=== PATIENT | female | born 1985 | race Caucasian/White ===

== ENCOUNTER 2018-09-16 14:44 | Outpatient (CLI) | payer MEDICAID, SELFPAY ==
--- NOTE | 2018-09-16 09:12 | DI.RAD_ITS ---
SYMPTOM/DIAGNOSIS: NODULE OF BUTTOCK, E22/2, LOCALIZED MASS LUMBOSACRAL SPINE: The vertebral bodies are intact with note made of an os secondarius involving the L 5 vertebral body which is a normal anatomical variant. There are mild degenerative changes involving the lower dorsal spine. There is no evidence of disc space narrowing. The pedicle, spinous and transverse processes are intact. The sacrum and sacroiliac joints are well maintained. A small metallic marked is positioned over the right buttocks where there is a small region of soft tissue nodularity. SUMMARY: There are minimal degenerative changes involving the lumbosacral spine. There is an apparent small soft tissue area of nodularity over the left buttocks. Incidental note is also made of an IUD in place.
== END 2018-09-16 15:04 ==
PROVIDERS: Visit Provider Nurse Practitioner Family
DX: R22.2 Localized swelling, mass and lump, trunk (principal); Z97.5 Presence of (intrauterine) contraceptive device
CPT/HCPCS: 72110

== ENCOUNTER 2018-12-29 22:11 | Outpatient (REF) | payer MEDICAID, SELFPAY | END 2018-12-29 22:31 | LOC: LBN 22:11 | PROVIDERS: PCP Nurse Practitioner Family; Visit Provider Nurse Practitioner Family | DX: R68.89 Other general symptoms and signs (principal) | CPT/HCPCS: 87449 ==

== ENCOUNTER 2019-03-18 13:10 | Outpatient (REF) | payer MEDICAID, SELFPAY ==
--- NOTE | 2019-03-18 11:40 | PAPFT_PTH ---
PATIENT: Ashley Chicas LOC: [facility] U#:[id number] AGE/SX: 34/F ROOM: RE03/18/[address]: MELODY Garduno : 1985 BED: DIS: 03/18/2019 SPEC #: [id number] RECD: 03/21/19 12:53 STATUS: MOLLY REJonas #: [id number] CARLITA: 03/18/19 11:[address]: Julia Dasilva DEPT: [facility] Cytology RECD BY: Suzie Robert Tissues: 1 - CX/ENDOCX FOR PAP SMEARS Procedures: PAP THIN PREP/UVM Screening HPV DNA PROBE Comments: [id number]
== END 2019-03-18 13:30 ==
LOC: LBN 13:10
PROVIDERS: PCP Nurse Practitioner Family; Visit Provider Nurse Practitioner Family
DX: Z12.4 Encounter for screening for malignant neoplasm of cervix (principal); Z11.51 Encounter for screening for human papillomavirus (HPV)
CPT/HCPCS: 88142; 87624

== ENCOUNTER 2019-05-16 15:10 | Outpatient (REF) | payer MEDICAID, SELFPAY ==
[2019-05-17 13:45] LABS: Chlamydia Result Negative; GC Result Negative; Specimen Description CERVIX
== END 2019-05-16 15:30 ==
LOC: LBN 15:10
PROVIDERS: PCP Nurse Practitioner Family; Visit Provider Nurse Practitioner Family
DX: Z11.3 Encounter for screening for infections with a predominantly sexual mode of transmission (principal)
CPT/HCPCS: 87491; 87591

== ENCOUNTER 2019-06-16 08:51 | Outpatient (CLI) | payer MEDICAID, SELFPAY ==
[2019-06-16 11:02] LABS: Hemoglobin A1C 5.2 % (4.5-6.2)
[2019-06-16 11:05] LABS: ALT 24 U/L (12-78); AST 12 U/L (15-37); Albumin 4.2 g/dL (3.4-5.0); Alkaline Phosphatase 62 U/L (46-116); Anion Gap 8.3 mmol/L (3-11); BUN 10 mg/dL (7-18); Bilirubin, Total 0.5 mg/dL (0.2-1.0); CO2 26.7 mmol/L (21.0-32.0); CREATININE 0.69 mg/dL (0.55-1.02); Calcium 9.2 mg/dL (8.5-10.1); Calculated LDL 136 mg/dL; Chloride 103 mmol/L (98-107); Cholesterol 198 mg/dL (50-200); Glucose 95 mg/dL (70-100); HDL Cholesterol 44 mg/dL (40-60); Potassium 4.8 mmol/L (3.5-5.1); Sodium 138 mmol/L (136-145); Total Protein 7.3 g/dL (6.4-8.2); Triglyceride 93 mg/dL (30-150)
[2019-06-16 11:16] LABS: ESR 11 MM/HR (0-20)
[2019-06-16 14:19] LABS: Abs Immature Grans 0.02 k/cumm (0.0-0.09); Absolute Basophil Count 0.02 k/cumm (0.0-0.2); Absolute Eosinophil Count 0.18 k/cumm (0.0-0.7); Absolute Lymphocyte Count 2.39 k/cumm (1.2-3.4); Absolute Monocyte Count 0.47 k/cumm (0.11-0.7); Absolute Neutrophil Count 3.16 k/cumm (1.2-6.7); Basophils % 0.3; Eosinophils % 2.9; HCT 38.3 % (36.0-46.0); HGB 13.1 g/dL (12.0-15.5); Immature Grans % 0.3; Lymphocytes % 38.3; Mean Corp. HGB Concentration 34.2 g/dL (32.0-36.0); Mean Corpuscular Hemoglobin 32.9 pg (27.0-33.0); Mean Corpuscular Volume 96.2 fL (80-95); Mean Platelet Volume 9.3 fL (8.0-11.0); Monocytes % 7.5; Neutrophils % 50.7; Platelet Count 421 x1000/uL (130-400); RBC 3.98 m/cumm (4.00-5.20); White Blood Cell Count 6.24 k/cumm (4.4-10.8)
[2019-06-17 10:44] LABS: Lyme Ab w Rflx to Lyme Confirm Negative
[2019-06-17 13:55] LABS: FREE T4 0.79 ng/dL (0.76-1.46)
== END 2019-06-16 09:11 ==
PROVIDERS: PCP Nurse Practitioner Family; Visit Provider Nurse Practitioner Family
DX: Z86.32 Personal history of gestational diabetes (principal); W57.XXXA Bitten or stung by nonvenomous insect and other nonvenomous arthropods, initial encounter; T14.8XXA Other injury of unspecified body region, initial encounter
CPT/HCPCS: 36415; 80053; 80061; 83721; 85652; 83036; 84439; 84443; 85025; 86618

== ENCOUNTER 2022-07-31 12:44 | Outpatient (REF) | payer MEDICAID, SELFPAY ==
--- NOTE | 2022-07-31 11:30 | PAPFT_PTH ---
PATIENT: Ashley Chicas LOC: [facility] U#:[id number] AGE/SX: 37/F ROOM: RE07/31/[address]: MELODY Garduno : 1985 BED: DIS: 07/31/2022 SPEC #: [id number] RECD: 08/01/22 12:58 STATUS: MOLLY CALL #: [id number] CARLITA: 07/31/22 11:[address]: Julia Dasilva DEPT: [facility] Cytology RECD BY: Suzie Robert Tissues: 1 - CX/ENDOCX FOR PAP SMEARS Procedures: PAP THIN PREP/UVM Screening HPV DNA PROBE Comments: [id number]
== END 2022-07-31 12:45 | disposition home or self-care (01) ==
LOC: LBN 12:44
PROVIDERS: PCP Nurse Practitioner Family; Visit Provider Nurse Practitioner Family
DX: Z12.4 Encounter for screening for malignant neoplasm of cervix (principal); Z11.51 Encounter for screening for human papillomavirus (HPV)
CPT/HCPCS: 88142; 87624

== ENCOUNTER 2023-04-09 02:30 | Outpatient (CLI) | payer MEDICAID, SELFPAY ==
[2023-04-09 13:17] LABS: Abs Immature Grans 0.01 10^3/uL (0.0-0.06); Absolute Basophil Count 0.05 10^3/uL (0.0-0.2); Absolute Eosinophil Count 0.18 10^3/uL (0.0-0.7); Absolute Lymphocyte Count 3.31 10^3/uL (1.2-3.4); Absolute Monocyte Count 0.54 10^3/uL (0.1-0.8); Absolute Neutrophil Count 2.33 10^3/uL (1.2-6.7); Basophils % 0.8; Eosinophils % 2.8; HCT 35.3 % (36.0-46.0); HGB 12.3 g/dL (11.2-15.7); Immature Grans % 0.2; Lymphocytes % 51.6; MCH 33.1 pg (27.0-33.0); MCHC 34.8 % (32.0-36.0); MCV 95 fL (80-95); MPV 8.7 fL (8.0-11.0); Monocytes % 8.4; Neutrophils % 36.2; Platelet Count 376 10^3/uL (130-400); RBC 3.72 10^6/uL (3.93-5.22); RDW 11.5 % (11.7-14.6); RDW-SD 39.9 fL; WBC 6.42 10^3/uL (4.4-10.8)
[2023-04-09 13:49] LABS: Hemoglobin A1C 5.2 % (<5.7)
[2023-04-09 13:53] LABS: ALT 25 U/L (14-59); AST 15 U/L (15-37); Alkaline Phosphatase 50 U/L (46-116); Anion Gap 7.6 mmol/L (3-11); BUN 9 mg/dL (7-18); Bilirubin, Total 0.4 mg/dL (0.2-1.0); CO2 28.4 mmol/L (21.0-32.0); CREATININE 0.7 mg/dL (0.55-1.02); Calcium 8.5 mg/dL (8.5-10.1); Calculated LDL 159 mg/dL (<100); Chloride 102 mmol/L (98-107); Cholesterol 230 mg/dL (<200); Estimated GFR 114.16 (mL/min/1.73m2); Glucose 88 mg/dL (74-106); HDL Cholesterol 46 mg/dL (40-60); Potassium 3.7 mmol/L (3.5-5.1); Sodium 138 mmol/L (136-145); Total Protein 7.3 g/dL (6.4-8.2); Triglyceride 126 mg/dL (<150)
[2023-04-10 07:17] LABS: Lab Add On Test DONE
[2023-04-10 07:55] LABS: Ferritin 74 ng/mL (8-252); Vitamin B12 1264 pg/mL (193-986)
== END 2023-04-09 02:31 | disposition home or self-care (01) ==
PROVIDERS: PCP Nurse Practitioner Family; Visit Provider Nurse Practitioner Family
DX: D64.9 Anemia, unspecified (principal); E78.5 Hyperlipidemia, unspecified; R10.84 Generalized abdominal pain; K21.9 Gastro-esophageal reflux disease without esophagitis; F41.8 Other specified anxiety disorders; Z86.32 Personal history of gestational diabetes
CPT/HCPCS: 36415; 80053; 80061; 82607; 82728; 83036; 85025

== ENCOUNTER 2023-05-13 02:40 | Outpatient (CLI) | payer MEDICAID, SELFPAY ==
--- NOTE | 2023-05-13 08:00 | DI.US_ITS ---
Exam(s) US ABD PELV TRANSVAG NON-OB EXAM: US ABD PELV TRANSVAG NON-OB CLINICAL HISTORY: Upper abdominal and lower pelvic pain,R10.84 TECHNIQUE: Ultrasound of the abdomen and pelvis was performed both transabdominal and transvaginal. COMPARISON: US OB US 2-3 TRIMESTER TRANSABD*P from 02/16/2014 FINDINGS: ABDOMEN: There is no ascites evident. LIVER: There are no hepatic lesions evident nor obvious dilatation of intrahepatic ducts. GALLBLADDER/BILIARY: There are no gallstones. No gallbladder wall edema nor pericholecystic fluid. The common hepatic duct isnot dilated, measuring 3-4mm at the level of vicente hepatis. PANCREAS: There is no evidence of pancreatic mass nor dilatation of the pancreatic duct. SPLEEN: The spleen is not enlarged and there are no intrasplenic lesions evident. KIDNEYS:Kidneys exhibit normal size with no evidence of solid mass, calculus, nor hydronephrosis. No cortical cysts evident. ABDOMINAL AORTA: There is no evidence of abdominal aortic aneurysm. IVC: Normal diameter where visualized. UTERUS: Measures 7 cm length x 4 cm AP x 5 cm wide. There is a single fibroid located anteriorly measuring 1.3 x 1.2 cm. There is an IUD in satisfactory position in the endometrial canal. Endometrial thickness measures 4 mm. There is no fluid in the endometrial canal. CERVIX: There are no obvious nabothian cysts. RIGHT OVARY: Measures 1.8 x 1.1 x 0.9 cm. Contains sub cm follicular cysts. No solid lesions. LEFT OVARY: Measures 3.3 x 2.4 x 2.9 cm Contains follicular cysts ranging up to 1.8 x 2.1 cm. CUL-DE-SAC: No free fluid evident. IMPRESSION: 1. No evidence of cholelithiasis nor dilatation of the biliary tree. 2. No other significant ultrasound findings in the upper abdomen. 3. There is no ascites. 4. IUD is in good position in the endometrial canal. Solitary small anterior myometrial fibroid trevor uring 13 x 12 mm.. 5. 2 cm follicular cyst in the left ovary. Probably dominant follicle. No solid ovarian masses. 6. No free fluid evident in the adnexal regions and cul-de-sac. 7. DATA REPOSITORY:
== END 2023-05-13 03:00 ==
LOC: DI 02:40
PROVIDERS: PCP Nurse Practitioner Family; Visit Provider Nurse Practitioner Family
DX: R10.84 Generalized abdominal pain (principal); N83.02 Follicular cyst of left ovary
CPT/HCPCS: 76700; 76830; 76856

== ENCOUNTER 2023-05-14 10:45 | Outpatient (CLI) | payer MEDICAID, SELFPAY ==
[2023-05-14 13:03] LABS: ALT 23 U/L (14-59); AST 14 U/L (15-37); Albumin 4.2 g/dL (3.4-5.0); Alkaline Phosphatase 55 U/L (46-116); Amylase 41 U/L (25-115); Anion Gap 8.7 mmol/L (3-11); BUN 9 mg/dL (7-18); Bilirubin, Total 0.5 mg/dL (0.2-1.0); CO2 28.3 mmol/L (21.0-32.0); CREATININE 0.7 mg/dL (0.55-1.02); Calcium 9.3 mg/dL (8.5-10.1); Chloride 104 mmol/L (98-107); Estimated GFR 114.16 (mL/min/1.73m2); Glucose 96 mg/dL (74-106); Lipase 27 U/L (16-77); Potassium 4.1 mmol/L (3.5-5.1); Sodium 141 mmol/L (136-145); Total Protein 7.7 g/dL (6.4-8.2)
== END 2023-05-14 10:46 | disposition home or self-care (01) ==
LOC: LOS 10:46
PROVIDERS: PCP Nurse Practitioner Family; Visit Provider Nurse Practitioner Family
DX: K21.9 Gastro-esophageal reflux disease without esophagitis (principal); R10.13 Epigastric pain; R10.84 Generalized abdominal pain; R19.4 Change in bowel habit
CPT/HCPCS: 36415; 80053; 83690; 82150

== ENCOUNTER 2023-08-13 11:23 | Day surgery (SDC) | payer MEDICAID, SELFPAY ==
--- NOTE | 2023-08-13 10:34 | PDOC.DSDIS_ITS ---
Date of service: 08/13/23 Time of Service: 13:14 Discharge Plan Disposition Patient Disposition: Home Condition: Good Discharge Details Reason For Visit: EGD Attending Provider: Giovany Aviles Primary Care Provider: Julia Dasilva Home Meds and New Rx's Prescriptions: Continued Mirena 20 mcg/24 hours (5 yrs) 52 mg intrauterine device 1 device IY ONCE Patient Comments: Inserted 05/16/19 famotidine 20 mg tablet 20 mg PO QHS Qty: 30 0RF Patient Comments: no longer taking, switched to omeprazole One Daily Women's 27-0.4 mg tablet 1 tab PO DAILY Patient Comments: no longer taking omeprazole 40 mg capsule,delayed release(DR/EC) 40 mg PO DAILY PRN (Reason: heartburn) Qty: 90 3RF sertraline 100 mg tablet 200 mg PO DAILY Qty: 180 3RF Rx Instructions: Take 2 tabs daily Discharge Instructions Instructions: Hiatal Hernia (GEN) Additional Instructions: Ashley, we were able to do your upper endoscopy today without any problems. You do have signs of a hiatal hernia. This is where a portion of your stomach slips up through the muscular separation between your chest and your belly (that muscle was called the diaphragm) I suspect this is contributing to a lot of your symptoms. If taking the liberty of making an appointment for you to follow-up in our surgical offices with Dr. Maximino Fuchs for his opinion regarding management, and potential surgical repair. 1. If tolerated, consume a soft, low fiber diet for 1-2 days. [address] Do not drive, drink alcohol, operate machinery, make critical decisions, or do activities that require coordination or balance for 24 hours. 3. You may experience a sore throat for 24 to 48 hours. You may use throat lozenges or gargle with warm salt water to relieve the discomfort. 4. Because air was put into your stomach during the procedure, you may experience some belching. 5. Go directly to the emergency room if you notice any of the following: Develop chills (warm to touch), or if you have a thermometer and your temperature is above 101 Difficulty breathing or difficultly swallowing Persistent vomiting Severe abdominal pain, other than gas cramps Severe chest pain Black, tarry stools Any bleeding ? exceeding one tablespoon 6. Call your physician if the site where your intravenous was started becomes red, swollen, painful, and warm to touch. 7. Your physician has reviewed your pre-procedure medications. Please continue to take those medications as previously ordered. You will be given specific information/education regarding any changes to your medications before leaving. Referrals: Maximino Fuchs MD [ [facility] STAFF PHYSICIAN] - (August 25 at 2:30 PM) Activity:: Activity as Tolerated Diet:: As Tolerated Discharge Orders Discharge Orders: Discharge Order (Routine); Ordered 08/13/23 Ordered By: Giovany Aviles DS: Diagnosis Discharge Diagnosis (1) GERD (gastroesophageal reflux disease): Status: Chronic Asessment and Plan: Will need referral for hiatal hernia repair, and possibly Amna fundoplication
--- NOTE | 2023-08-13 10:35 | W.PM.ENDDOP ---
Date of service: 08/13/23 Time of Service: 13:19 Endoscopy Report DATE OF PROCEDURE: 08/13/23 PRE-OP DIAGNOSIS: GERD POST-OP DIAGNOSIS: other (Hiatal hernia) PROCEDURE: EGD with biopsies SURGEON: Giovany Aviles ANESTHESIA TYPE: General:No Airway ESTIMATED BLOOD LOSS: 10 PATHOLOGY: other COMPLICATIONS: None DISPOSITION: same day INDICATIONS: Ashley is a 38 year old woman with longstanding GERD that has been refractory to PPI therapy PROCEDURE START TIME: 12:48 PROCEDURE END TIME: 12:54 FINDINGS: Hill grade 3 or 4 hiatal hernia PROCEDURE DESCRIPTION: After the initiation of monitored anesthetic care, and with the assistance of a bite block, I advanced a standard gastroscope through the mouth past the hypopharynx and into the esophagus.? Under the direct vision of the scope, I advanced down the esophagus into the stomach.? Once I entered the stomach, I performed a brief inspection, followed by retroflexion towards the gastric cardia.? There was laxity of the GE junction around the scope, and upon further inspection and gentle insufflation, there was clearly herniation of the GE junction up above the diaphragmatic hiatus. I would estimate this to be a Hill 3, or potentially help for hiatal hernia. There is no evidence of any ulceration around herniating mucosa. The remainder of the gastric cardia and fundus appeared totally normal. I turned the camera back towards the antegrade position and advanced towards the pylorus. The incisura was normal. The antrum was normal and the pylorus was also normal. I then gently advance his camera into the duodenum. I was able to advance down to the third portion of the duodenum and visualize bile draining through the ampulla Vater. I did perform biopsies of the duodenum before backing the camera back out into the stomach. I perform random biopsies of the gastric antrum and gastric body to ensure that there is no presence of helical back to pylori or any evidence of microscopic gastritis. I then brought the camera back up to the GE junction. The Z-line was fairly normal-appearing, and measured approximately 38 cm from the incisors. Given the longstanding reflux, I did perform biopsies of the GE junction. I then emptied the stomach, and brought the camera out along the length of the esophagus which was carefully examined. The length of the esophagus was totally normal as well. The camera was withdrawn, the patient was brought to the recovery unit.
[2023-08-13 11:30] VITALS: BP 128/77; PULSE 82; RESP 16; TEMP 36.5; O2SAT 98
--- NOTE | 2023-08-13 12:08 | W.ANESPRE ---
General Info Date of Service Date Performed: 08/13/23 Height: 5 ft 3 in Weight: 77.6 kg Body Mass Index (BMI): 30.3 Surgical Procedure: Operation Date: 08/13/23 13:05 Proposed Procedure Side Surgeon p Gastroscopy Giovany Aviles MD Meds Allergies and Home Medications Allergies Allergy/AdvReac Type Severity Reaction Status Date / Time citalopram AdvReac VOMITING Verified 08/13/23 11:49 Home Medication Medication Instructions Recorded levonorgestrel 21 mcg/24 hours (8 1 device intrauterine ONCE 06/16/19 yrs) 52 mg intrauterine device (Mirena) wyogrrgfqzty-Zb-wtne-minerals 27 1 tab PO DAILY 07/21/19 mg-0.4 mg tablet (One Daily Women's) famotidine 20 mg tablet 20 mg PO QHS #30 tabs 04/06/23 omeprazole 40 mg capsule,delayed 40 mg PO DAILY PRN heartburn #90 05/14/23 release caps sertraline 100 mg tablet 200 mg PO DAILY #180 tabs 07/13/23 Current Visit Medications: Current Medications Generic Name Dose Route Start Last Admin Trade Name Freq PRN Reason Stop Dose Admin Hyoscyamine Sulfate 0.125 mg 08/13/23 10:37 Hyoscyamine 0.125 Mg Sl/Oral/Chew SL 09/12/23 10:36 DIRECTED PRN Ringer's Solution 1,000 mls @ 80 mls/hr 08/13/23 06:00 IV 09/11/23 23:59 [facility]ION [facility] IV Miscellaneous Supplies 1 each 08/13/23 06:00 Iv Access IV 09/11/23 23:59 DIRECTED JALEN Ondansetron HCl 4 mg 08/13/23 10:37 Ondansetron 4 Mg/2 Ml Vial IVP 09/12/23 10:36 Q4H PRN PRN Nausea / Vomiting Sodium Chloride 0 ml 08/13/23 06:00 Normal Saline Flush 10 Ml Syr IV 09/11/23 23:59 PRN PRN Sodium Chloride 0 ml 08/13/23 06:00 Normal Saline 10 Ml Vial IJ 09/11/23 23:59 DIRECTED PRN Sterile Water 0 ml 08/13/23 06:00 Water,Injection,Sterile 10 Ml Vial IJ 09/11/23 23:59 DIRECTED PRN PFSH Active Problems Active Problems: Problem Status Onset Code Hyperlipidemia E78.5 Depressive disorder F32.9 Generalized anxiety disorder F41.1 GERD (gastroesophageal reflux disease) K21.9 Abdominal pain R10.9 Obesity E66.9 Stress incontinence N39.3 Medical History Medical History Alcohol use disorder, severe, in sustained remission [place] 09/2015 and 05/2018 No alcohol since 05/31/18 Cigarette smoker Gestational diabetes mellitus Gestational hypertension Medical History Comments:: Pt. states no potential triggers r/t PTSD that will impact her care needs today. biological mother with PONV Surgical History Surgical History Status post ORIF of fracture of ankle (12/07/15) Right medial malleolus fracture ORIF Tobacco Smoking/Tobacco Use Status: Former Tobacco Use Passive smoking exposure: Yes Second hand exposure: Yes Alcohol Alcohol Intake: former Details: No alcohol use since 05/31/2018 Substance Use Substance use: Daily Substance use type: marijuana Details: last inhaled marijuana use t-1 Prental History History 2 Para 2 Hx # Term Pregnancies Multiple births Hx # Pregnancies Ectopic pregnancies AB induced Hx Number of Living Children 2 AB spontaneous Vital Signs and Lab Results Vital Signs Most Recent Vital Signs in EMR: Most Recent Vital Signs Temp Pulse Resp BP Pulse Ox 36.5 C 82 16 128/77 98 08/13/23 11:30 08/13/23 11:30 08/13/23 11:30 08/13/23 11:30 08/13/23 11:30 Lab Results Blood Type / Crossmatch: No Data to Display Complete Blood Count: No Data to Display Complete Metabolic Panel: No Data to Display Liver Function Panel: No Data to Display Coagulation Panel: No Data to Display Cardiac Panel: No Data to Display Arterial Blood Gas: No Data to Display Venous Blood Gas: No Data to Display Pancreas Panel: No Data to Display Thyroid Panel: No Data to Display Infectious Disease: No Data to Display Blood Cultures: No Data to Display Toxicology Panel: No Data to Display Panel: No Data to Display Anesthesia Assessment and Plan Anesthesia History Personal History: No History of Anesthesia Complications Family History: Other (mother PONV) Exercise Tolerance Exercise Tolerance: Metabolic Equivalents>4 Pertinent Negatives Pertinent Negatives: No Major Cardiovascular Symptoms or Complaints, No Major Pulmonary Symptoms or Complaints and No History of CVA/TIA Cardiac & Pulmonary Exam Cardiac Exam: Normal S1/S2 Heart Sounds Pulmonary Exam: Clear Bilateral Breath Sounds Implantable Cardiac Device Does patient have a Pacemaker or an ICD?: No Airway Exam Known Difficult Airway: No Mallampati Class: 2 Mouth Opening: Normal (> 3cm) Thyromental Distance: Less than 3 cm Neck Range of Motion: Full ROM Neck Circumference: Normal Teeth Condition: Normal Dentition ASA Classification ASA Score: ASA 2 Emergency Case?: No NPO Status NPO Status: NPO Clears >2 hours, Solids >8 hours Status Status: Negative HCG Anesthesia Plan Resuscitation Status: Full Code Anesthesia Technique: General Anesthesia Airway Planned: Natural Airway Monitors Used: Standard Monitors Preoperative Comments:: Daily marijuana
[2023-08-13 12:10] VITALS: BMI 30.3
[2023-08-13] MEDS: Lactated Ringers 1,000 ML 80 ML IV (12:10)
--- NOTE | 2023-08-13 12:49 | STOM_PTH ---
PATIENT: Ashley Chicas LOC: [facility] U#:[id number] AGE/SX: 38/F ROOM: RE08/13/[address]: Giovany Aviles MD : 1985 BED: DIS: 08/13/2023 SPEC #: [id number] RECD: 08/13/23 16:25 STATUS: MOLLY [facility] #: [id number] CARLITA: 08/13/23 12:[address]: Giovany Aviles DEPT: Surgical Specimen RECD BY: Suzie Robert ENTERED: 08/13/23 16:26 SP TYPE: STOMACH OTHR DR: MELODY Garduno Tissues: 1 - BIOPSY BOWEL 2 - STOMACH BIOPSY 3 - STOMACH BIOPSY 4 - ESOPHAGUS BIOPSY Procedures: GROSS AND MICRO LEVEL 4 IMMUNOPEROXIDASE STAIN Comments: [id number]
[2023-08-13 13:03] VITALS: BP 107/73; PULSE 82; RESP 14; TEMP 36.4; O2SAT 96
[2023-08-13 13:37] VITALS: BP 111/81; PULSE 80; RESP 18; TEMP 36.6; O2SAT 98
--- NOTE | 2023-08-13 13:45 | W.ANESPOSTOP ---
Postoperative Evaluation Date, Time and Location Date Performed: 08/13/23 Time Performed: 13:25 Patient Location: Day Surgery Unit Vital Signs Most Recent Imported Vital Signs: Most Recent Vital Signs Temp Pulse Resp BP Pulse Ox 36.6 C 80 18 111/81 98 08/13/23 13:37 08/13/23 13:37 08/13/23 13:37 08/13/23 13:37 08/13/23 13:37 Pain Score Most Recent Pain Score: Most Recent Pain Score Pain Level 0 08/13/23 13:37 Assessment Mental Status: Awake (Alert & Oriented to Patient Baseline) Airway and Respiratory Function: Patent airway with normal (patient baseline) respiratory exam Cardiovascular Function: Hemodynamically Stable Hydration Status: Adequately Hydrated Nausea & Vomiting: No Nausea or Vomiting Pain: Pt. Denies Any Pain Peripheral Nerve Block: Patient did not receive a nerve block
== END 2023-08-13 14:10 | disposition home or self-care (01) ==
PROVIDERS: PCP Nurse Practitioner Family; Visit Provider Surgery
PROC: 0DJ68ZZ Inspection of Stomach, Via Natural or Artificial Opening Endoscopic (ICD-10-PCS; CPT 43235; principal; 2023-08-13 13:00)
DX: K21.9 Gastro-esophageal reflux disease without esophagitis (principal); K44.9 Diaphragmatic hernia without obstruction or gangrene; K29.70 Gastritis, unspecified, without bleeding
CPT/HCPCS: 43239; 81025; 88305; 88361; J2405

== ENCOUNTER → 2023-09-02 02:18 | Outpatient (CLI) | payer MEDICAID, SELFPAY ==
[2023-09-02] MEDS: Barium Sulfate 98% W/W 140 ML BTL 100 ML PO (09:42)
[2023-09-02] MEDS: Simethicone/Sod Bicarb/Cit Ac, 4 gram PACKET 1 PACKET PO (09:43)
[2023-09-02] MEDS: Barium Sulfate 60% W/V 355 ML BTL 250 ML PO (09:43)
--- NOTE | 2023-09-02 09:49 | DI.RAD_ITS ---
Exam(s) RF BARIUM SWALLOW EXAM: RF BARIUM SWALLOW CLINICAL HISTORY: Assess hiatal hernia, reflux and motility,k44.9 TECHNIQUE: Esophagram performed both standing and recumbent. Performed both single and air contrast technique. CONTRAST MATERIAL: Oral barium Oral water soluble contrast was administered. COMPARISON: No exams were available for comparison FINDINGS: ESOPHAGRAM: Swallowing mechanism appears intact. No aspiration. No Zenker's diverticulum evident. No obvious hypertense upper esophageal sphincter. No stricture evident. Motility appears normal and there were no tertiary contractions evident. No evidence of achalasia. No evidence of Schatzki rin g. No diverticuli. GE junction appears unremarkable. Towards the end of this examination a small hiatal hernia was demonstrated, however, this was only af ter the patient drank quite a bit of barium and gas forming fizzies. Postprocedure image did not rev eal hiatal hernia. There was no GE reflux demonstrated during this examination. IMPRESSION: Essentially unremarkable esophagram. A small hiatal hernia was elicited but only after the patient w as significantly challenged with abundant barium and gas. There was no associated reflux RADIATION DOSE DELIVERED: ingrid Barakat=38.2 mGy
== END ==
PROVIDERS: PCP Nurse Practitioner Family; Visit Provider Student in an Organized Health Care Education/Training Program
DX: K44.9 Diaphragmatic hernia without obstruction or gangrene (principal)
CPT/HCPCS: 74221; J3490

== ENCOUNTER 2023-10-30 18:24 | Outpatient (REF) | payer MEDICAID, SELFPAY ==
[2023-11-03 10:49] LABS: Helicobacter pylori Ag, Feces Positive (Negative)
== END 2023-10-30 18:25 | disposition home or self-care (01) ==
LOC: LBN 18:24
PROVIDERS: PCP Nurse Practitioner Family; Visit Provider Student in an Organized Health Care Education/Training Program
DX: B96.81 Helicobacter pylori [H. pylori] as the cause of diseases classified elsewhere (principal); K29.70 Gastritis, unspecified, without bleeding
CPT/HCPCS: 87338

== ENCOUNTER 2024-04-01 14:43 | Outpatient (REF) | payer MEDICAID, SELFPAY ==
[2024-04-05 12:09] LABS: Helicobacter pylori Ag, Feces Negative (Negative)
== END 2024-04-01 14:44 | disposition home or self-care (01) ==
LOC: LBN 14:43
PROVIDERS: Visit Provider Surgery
DX: K29.60 Other gastritis without bleeding (principal); B96.81 Helicobacter pylori [H. pylori] as the cause of diseases classified elsewhere
CPT/HCPCS: 87338

== ENCOUNTER 2024-06-17 16:40 | Outpatient (REF) | payer MEDICAID, SELFPAY ==
--- NOTE | 2024-06-17 07:45 | PAPFT_PTH ---
PATIENT: Ashley Chicas LOC: [facility] U#:[id number] AGE/SX: 39/F ROOM: RE06/17/[address]: Fela Johnson : 1985 BED: DIS: 06/17/2024 SPEC #: [id number] RECD: 06/17/24 17:28 STATUS: MOLLY REJonas #: [id number] CARLITA: 06/17/24 07:[address]: Fela Johnson DEPT: [facility] Cytology RECD BY: Suzie Robert ENTERED: 06/17/24 17:29 SP TYPE: PAPFT ROBERTA DR: Unknown,Unknown Tissues: 1 - CX/ENDOCX FOR PAP SMEARS Procedures: PAP THIN PREP/UVM Screening HPV DNA PROBE Comments: [id number] (HPV 16 & 18/45) (CHLAMYDIA/GC)
[2024-06-20 12:47] LABS: Chlamydia Result Negative (Negative); GC Result Negative (Negative)
== END 2024-06-17 16:41 | disposition home or self-care (01) ==
LOC: NCHCN 16:40
PROVIDERS: Visit Provider Nurse Practitioner Family
DX: Z12.4 Encounter for screening for malignant neoplasm of cervix (principal); Z11.51 Encounter for screening for human papillomavirus (HPV); Z11.3 Encounter for screening for infections with a predominantly sexual mode of transmission
CPT/HCPCS: 87491; 87591; 88142; 87624

== ENCOUNTER 2024-10-31 16:01 | Outpatient (REF) | payer MEDICAID, SELFPAY ==
[2024-10-31 16:05] LABS: TSH (W/Ref FT4) 1.64 uIU/mL (0.36-3.74)
== END 2024-10-31 16:02 | disposition home or self-care (01) ==
LOC: NCHCN 16:01
PROVIDERS: Visit Provider Nurse Practitioner Family
DX: R61 Generalized hyperhidrosis (principal)
CPT/HCPCS: 84443

== ENCOUNTER 2025-04-28 14:23 | Outpatient (REF) | payer MEDICAID, SELFPAY ==
[2025-04-28 14:45] LABS: TSH 1.66 uIU/mL (0.36-3.74)
[2025-04-28 22:09] LABS: T3,Free 3.6 pg/mL (2.8-5.3)
== END 2025-04-28 14:24 | disposition home or self-care (01) ==
LOC: NCHCN 14:23
PROVIDERS: Visit Provider Nurse Practitioner Family
DX: E04.9 Nontoxic goiter, unspecified (principal)
CPT/HCPCS: 84439; 84443; 84481

== ENCOUNTER 2025-05-24 00:26 | Outpatient (CLI) | payer MEDICAID, SELFPAY ==
--- NOTE | 2025-05-24 | DI.US_ITS ---
Exam(s) US THYROID EXAM: US THYROID CLINICAL HISTORY: LOW T4 abnl findings of blood chemistry R79.89. TECHNIQUE: Ultrasound thyroid performed using standard protocol. COMPARISON: None FINDINGS: ISTHMUS: 3 mm RIGHT LOBE: Size: 4.4 x 1.5 x 1.8 cm Echogenicity: Heterogeneous Vascularity: hypervascular Nodules: None. LEFT LOBE: Size: 4.2 x 1.0 x 1.3 cm Echogenicity: Heterogeneous Vascularity: Hypervascular. Nodules: None. OTHER FINDINGS: None. IMPRESSION: Heterogeneous hyperemic gland which may indicate Khurram's thyroiditis. DATA REPOSITORY:
== END 2025-05-24 00:46 ==
PROVIDERS: PCP Nurse Practitioner Family; Visit Provider Nurse Practitioner Family
DX: R79.89 Other specified abnormal findings of blood chemistry (principal); R93.89 Abnormal findings on diagnostic imaging of other specified body structures
CPT/HCPCS: 76536

== ENCOUNTER 2025-09-29 11:32 | Outpatient (REF) | payer MEDICAID, SELFPAY ==
[2025-09-29 15:38] LABS: Abs Immature Grans 0.01 10^3/uL (0.0-0.06); HCT 35.8 % (36.0-46.0); HGB 12.1 g/dL (11.2-15.7); Immature Grans % 0.2 %; MCH 32.0 pg (27.0-33.0); MCHC 33.8 % (32.0-36.0); MCV 95 fL (80-95); MPV 8.6 fL (8.0-11.0); Platelet Count 431 10^3/uL (130-400); RBC 3.78 10^6/uL (3.93-5.22); RDW 11.5 % (11.7-14.6); RDW-SD 39.4 fL; WBC 5.33 10^3/uL (4.4-10.8)
[2025-09-29 15:45] LABS: HCG Qual (Serum) Negative
[2025-09-29 15:59] LABS: Iron 69 ug/dL (50-170); Total Iron Binding Capacity 325 ug/dL (250-450); Transferrin Sat 21 % (15-50)
[2025-09-29 16:06] LABS: ALT 26 U/L (14-59); AST 17 U/L (15-37); Albumin 4.3 g/dL (3.4-5.0); Alkaline Phosphatase 73 U/L (46-116); Anion Gap 7.4 mmol/L (3-11); BUN 11 mg/dL (7-18); Bilirubin, Total 0.3 mg/dL (0.2-1.0); CO2 29.6 mmol/L (21.0-32.0); Calcium 9.0 mg/dL (8.5-10.1); Chloride 101 mmol/L (98-107); Cholesterol 282 mg/dL (<200); Ferritin 76 ng/mL (8-252); Glucose 96 mg/dL (74-106); HDL Cholesterol 54 mg/dL (>or=50); Potassium 4.5 mmol/L (3.5-5.1); Sodium 138 mmol/L (136-145); TSH 3.08 uIU/mL (0.36-3.74); Total Protein 7.6 g/dL (6.4-8.2); Vitamin D 25 Total 30 ng/mL (30-100)
[2025-09-30 22:43] LABS: T3,Free 3.8 pg/mL (2.8-5.3)
== END 2025-09-29 11:33 | disposition home or self-care (01) ==
LOC: NCHCN 11:32
PROVIDERS: PCP Nurse Practitioner Family; Visit Provider Nurse Practitioner Family
DX: Z97.5 Presence of (intrauterine) contraceptive device (principal); E04.9 Nontoxic goiter, unspecified; R53.83 Other fatigue; E78.5 Hyperlipidemia, unspecified
CPT/HCPCS: 80053; 80061; 82306; 82728; 83540; 83550; 84439; 84443; 84481; 84703; 85025